=== PATIENT | male | born 1955 | race Caucasian/White ===

== ENCOUNTER → 2020-05-27 09:30 | Outpatient (CLI) | payer MEDICARE, SELFPAY ==
--- NOTE | ~2020-05-27 | MR_ITS ---
EXAMINATION: MR femur LT wo con DATE: 05/27/2020 11:05 INDICATION: Left thigh pain. TECHNIQUE: Magnetic resonance imaging (MRI) of the left thigh/femur was performed without intravenous contrast. Sequences included axial, sagittal and coronal T1-weighted FSE, axial T2-weighted FS FSE, and sagittal and coronal fluid sensitive FSE STIR. The contralateral right femur/thigh is included on the coronal images. COMPARISON: None. FINDINGS: Bone marrow signal is normal throughout. No fracture, reactive edema or pathologic marrow replacing p rocess. No left hip or knee joint effusion. Evaluation of the hips and knees is however limited due t o some spatial distortion resulting from field inhomogeneity artifact at the margins of the field of imaging. Small marginal osteophytes about the femoral head consistent with at least mild left hip ost eoarthritis. There is suggestion of some likely degenerative subchondral cystic change at the superio r left acetabulum. Minimal focal fatty atrophy at the site of a likely old partial tear along the dis bhargav aspect of the proximal myotendinous junction of the left rectus femoris. Otherwise normal and sym metric muscle bulk and signal at the bilateral thighs. No abnormal masses identified. No pathological ly enlarged left inguinal lymphadenopathy. IMPRESSION: 1. Likely old healed partial tear along the distal aspect of the proximal myotendinous junction of th e left rectus femoris. 2. Hips and knees are suboptimally visualized due to field inhomogeneity artifact at the margins of t he field of imaging with suggestion of at least mild left hip osteoarthritis with subarticular cystic change at the superior left acetabulum. Reviewed, dictated and finalized at location A. MANAGER IMPRESSION: 1. Likely old healed partial tear along the distal aspect of the proximal myote ndinous junction of the left rectus femoris. 2. Hips and knees are suboptimally visualized due to field inhomogeneity artifa ct at the margins of the field of imaging with suggestion of at least mild left hip osteoarthritis with subarticular cystic change at the superior left acetab ulum.
== END ==
PROVIDERS: Visit Provider Orthopaedic Surgery
DX: M79.652 Pain in left thigh (principal)
CPT/HCPCS: 73721